=== PATIENT | female | born 1955 | race Caucasian/White ===

== ENCOUNTER 2022-11-04 14:30 | Outpatient (RCR) | payer MEDICARE, BC, SELFPAY | END 2022-11-04 15:24 | disposition home or self-care (01) | PROVIDERS: PCP Family Medicine; Visit Provider Family Medicine | DX: S22.060D Wedge compression fracture of T7-T8 vertebra, subsequent encounter for fracture with routine healing (principal); Z51.89 Encounter for other specified aftercare | CPT/HCPCS: 97110; 97140; 97162 ==

== ENCOUNTER 2023-10-14 14:22 | Emergency (ER) | payer MEDICARE, SELFPAY ==
[2023-10-14 14:26] VITALS: BP 119/83; PULSE 87; RESP 18; TEMP 35.7; O2SAT 98; BMI 32.3
--- NOTE | 2023-10-14 14:59 | CT_ITS ---
Patient: NATO COBB Facility:?[facility] Patient ID:?[id number] Site Patient ID:?[id number]. Site :?[id number] Study:?CT-Head WITHOUT-10/14/2023 3:26:46 PM Ordering Physician:CATHRYN Final Report: INDICATION: Dizziness COMPARISON: None TECHNIQUE: CT examination of the head was performed as axial sections without intravenous contrast. Images were obtained from the vertex of the skull through the skull base. Please note that all CT scans at this facility use dose modulation, iterative reconstruction, and/or weight-based dosing when appropriate to reduce radiation dose to as low as reasonably achievable. FINDINGS: The brain shows no sign of mass lesion, mass effect, hemorrhage, or edema. There are involutional changes. There is mild cortical atrophy and there is mild white matter disease. There is no hydrocephalus. The visualized portions of the orbits are normal in appearance. The osseous structures are normal in appearance with no sign of abnormality in the skull base or calvarium. IMPRESSION: Involutional changes. No acute-appearing findings. Please note that all CT scans at this facility use dose modulation, iterative reconstruction, and/or weight-based dosing when appropriate to reduce radiation dose to as low as reasonably achievable. Dictated by Maninder Winslow MD @ 10/14/2023 3:31:30 PM Signed by:?Maninder Winslow MD @10/14/2023 3:31:30 PM (Electronic Signature)
[2023-10-14 15:16] LABS: PCR FLU A Negative PCR FLU A (Negative); PCR FLU B Negative PCR FLU B (Negative); PCR RSV Negative PCR RSV (Negative); SARS PCR* Negative SARS-CoV-2 (Negative)
[2023-10-14] MEDS: MECLIZINE HCL 25 MG TABLET PO (15:38)
[2023-10-14] MEDS: LACTATED RINGERS 1000 ML 1,000 ML IV (15:38)
--- NOTE | 2023-10-14 15:51 | ED.GENADULT ---
HPI - General Adult General Date Seen: 10/14/23 Chief complaint: Headache/Migraine Stated complaint: Headache for over a week, dizzy Time Seen by Provider: 10/14/23 14:47 Source: patient Mode of arrival: ambulatory Limitations: no limitations History of Present Illness HPI narrative: Patient is a 68-year-old female with no pertinent medical problems presenting to the emergency department for dizziness and headache. She states for the past week she has been having issues with headache and dizziness. She states she does does not feel right. Says 1 week ago she has severe headache that improved but has been a continued headache since then. She has not been able to get rid of it. She also states she is feeling very dizzy and notices it gets worse whenever she moves her head. Does states she has similar symptoms about 4 weeks ago after getting back from right cruise. Describes dizziness as feeling like she still on the boat. Does states she has had vertigo in the past at that time and felt like the room was spinning. It was a long time ago and she does not remember how it was treated. Does states she has a cough but it is been a chronic cough that been going on for years. Denies fevers, chills, abdominal pain, chest pain, shortness of breath, diarrhea, constipation. Has occasional nausea but is not currently nauseated. She does states she feels dehydrated and has not been eating drinking or much for the past few days because of the dizziness. Related Data Home Medications Medication Instructions Recorded Confirmed alendronate 70 mg tablet 70 mg PO 03/07/23 06/10/23 bupropion HCl 300 mg 24 hr tablet, 300 mg PO DAILY 03/07/23 10/14/23 extended release cyclobenzaprine 5 mg tablet 5 mg PO 3XD PRN 03/07/23 06/10/23 levothyroxine 112 mcg tablet 112 mcg PO DAILY 03/07/23 10/14/23 liothyronine 5 mcg tablet 10 mcg PO QDAY 03/07/23 10/14/23 loratadine 10 mg tablet 10 mg PO DAILY 03/07/23 10/14/23 montelukast 10 mg tablet 10 mg PO DAILY 03/07/23 10/14/23 omeprazole 20 mg capsule,delayed 20 mg PO QDAY 03/07/23 06/10/23 release rosuvastatin 10 mg tablet 10 mg PO QPM 03/07/23 10/14/23 Previous Rx's Medication Instructions Recorded meclizine 25 mg tablet 25 mg PO QID #20 tabs 10/14/23 Allergies Allergy/AdvReac Type Severity Reaction Status Date / Time lisinopril AdvReac Verified 06/10/23 08:43 Sulfa (Sulfonamide AdvReac Verified 06/10/23 08:43 Antibiotics) Review of Systems Status of ROS: Reports: 10 or more systems reviewed and unremarkable except as noted in History and below [facility] Medical History Acute thoracic back pain ?M54.6 - Pain in thoracic spine (ICD-10) Compression fracture of T8 vertebra (~2021) ?S22.060A - Wedge compression fracture of T7-T8 vertebra, initial encounter for closed fracture (ICD-10) GERD (gastroesophageal reflux disease) ?K21.9 - Gastro-esophageal reflux disease without esophagitis (ICD-10) Hypothyroidism ?E03.9 - Hypothyroidism, unspecified (ICD-10) Surgical History Previous section (1987) ?Z98.891 - History of uterine scar from previous surgery (ICD-10) H/O knee surgery (1963) ?Z98.890 - Other specified postprocedural states (ICD-10) Family History Father COPD (chronic obstructive pulmonary disease) Mother Asthma High blood pressure Osteoporosis Social History Smoking Status: Current every day smoker What tobacco products do you use: cigarettes Do you use any of these nicotine containing products: None Second hand tobacco smoke exposure: No Exam Narrative: Exam Narrative: Const: Well-nourished, Well-developed, in mild distress Eyes: PERRL, no conjunctival injection, and symmetrical lids HENT: Atraumatic external nose and ears. Moist mucous membranes. Neck: Symmetric, trachea midline, No thyromegaly. CVS: RRR, No murmurs or gallops. Peripheral pulses 2+ and equal in all extremities RESP: Unlabored respiratory effort. Clear to auscultation bilaterally. GI: Nontender/Nondistended, No rebound or guarding. MSK:Extremities w/o deformity, Normal Active ROM Skin: Warm, Dry. No rashes or lesions. Neuro: Normal Muscle tone, No focal neurological deficits. Psych: Awake, Alert, & Oriented x3. Appropriate mood and affect. Const: Vital Signs, click to edit/add: Vital Signs - 24 hr 10/14/23 14:26 Temperature 96.3 F L Pulse Rate [Pulse Oximeter] 87 Respiratory Rate 18 Blood Pressure [Ri t Upper Arm] 119/83 Pulse Oximetry 98 Oxygen Delivery Me thod Room Air Course Vital Signs Vital signs: Initial Vital Signs Temperature 96.3 F L 10/14/23 14:26 Temperature Source Temporal Artery Scan 10/14/23 14:26 Pulse Rate 87 10/14/23 14:26 Respiratory Rate 18 10/14/23 14:26 Blood Pressure 119/83 10/14/23 14:26 Blood Pressure Mean 95 10/14/23 14:26 Blood Pressure Position Sitting 10/14/23 14:26 Pulse Oximetry 98 10/14/23 14:26 Oxygen Delivery Method Room Air 10/14/23 14:26 Vital Signs Temperature 96.3 F L 10/14/23 14:26 Pulse Rate 87 10/14/23 14:26 Respiratory Rate 18 10/14/23 14:26 Blood Pressure 119/83 10/14/23 14:26 Pulse Oximetry 98 10/14/23 14:26 Oxygen Delivery Method Room Air 10/14/23 14:26 Temperature 96.3 F L 10/14/23 14:26 Pulse Rate 87 10/14/23 14:26 Respiratory Rate 18 10/14/23 14:26 Blood Pressure 119/83 10/14/23 14:26 Pulse Oximetry 98 10/14/23 14:26 Oxygen Delivery Method Room Air 10/14/23 14:26 Medications Administered Medications: Discontinued Medications Generic Name Dose Route Start Last Admin Trade Name Freq PRN Reason Stop Dose Admin Lactated Ringer's 1,000 mls @ 1,000 mls/hr 10/14/23 14:59 10/14/23 16:47 Lactated Ringers 1000 Ml IV 10/14/23 15:58 Infused .Q1H ONE Infusion Meclizine HCl 25 mg 10/14/23 14:59 10/14/23 15:38 Meclizine Hcl 25 Mg Tablet PO 10/14/23 15:00 25 mg ONCE ONE Administration Potassium Chloride 40 meq 10/14/23 16:15 10/14/23 16:37 Potassium Chloride 10 Meq Capsule Er PO 10/14/23 16:16 40 meq ONCE ONE Administration Medical Decision Making MDM Narrative Medical decision making narrative: Patient is a 68-year-old female presenting mostly for dizziness at this time. Symptoms are worse when she moves her head and she is asymptomatic at rest. Do this I believe this is most likely peripheral vertigo rather than central dizziness. She does have this continued headache the also will still do a CT scan of her head. Will give her fluids for her dehydration and give her a dose of Antivert. Also order a COVID/flu/RSV, CBC, CMP, troponin, EKG. Patient's lab work returned showing no concerning abnormalities other than a potassium of 2.8. I did replenish his potassium. She is also given a L of lactated Ringer's. She was recently started on Lasix but is not taking it yet. I am not sure why she is hypokalemic but it is not low enough to require admission. Head CT reviewed by myself and the radiologist shows no acute concerning abnormalities. She was still having symptoms with head movement after meclizine I did attempt Epleys maneuver. This did not improve her symptoms. She does state though that she feels well enough to be discharged home. 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 She is agreeable to this plan. Lab Data Labs: Lab Results 10/14/23 10/14/23 10/14/23 Range/Units 14:34 15:00 15:36 WBC 10.36 (4.50-11.00) K/uL RBC 4.88 (4.00-5.20) m/uL Hgb 14.4 (12.0-16.0) gm/dL Hct 41.8 (33.0-51.0) % MCV 86 (80-100) fL MCH 30 (26-34) pg MCHC 34 (32-36) gm/dL RDW Coeff of Fazal 11.9 (11.5-15.5) % Plt Count 393 (140-440) K/uL Neut % (Auto) 55.5 (42.0-72.0) % Lymph % (Auto) 31.7 (20-44) % Norton % (Auto) 9.6 (0.0-11.0) % Eos % (Auto) 2.0 (0.0-7.0) % Baso % (Auto) 0.2 (0.0-3.0) % Neut # (Auto) 5.76 (1.7-7.0) K/uL Lymph # (Auto) 3.28 H (0.90-2.90) K/uL Norton # (Auto) 1.00 H (0.00-0.90) K/UL Eos # (Auto) 0.21 (0.00-0.50) K/uL Baso # (Auto) 0.02 (0.00-0.30) K/uL Abs Immat Gran (auto) 0.10 (0.00-0.30) K/uL Imm/Tot Granulo (auto) 1.0 % Sodium 132 L (135-149) mmol/L Potassium 2.8 L* (3.6-5.1) mmol/L Chloride 91 L (96-114) mmol/L Carbon Dioxide 30 (20-32) mmol/L Anion Gap 11 (7-15) mEq/L BUN 27 (7-30) mg/dL Creatinine 1.0 (0.5-1.5) mg/dL Estimated Creat Clear 49.00 Estimated GFR 61 ml/min Glucose 118 H (60-115) mg/dL Calcium 11.0 H (8.4-10.6) mg/dL Total Bilirubin 0.7 (0.1-1.5) mg/dL AST 42 H (12-35) U/L ALT 58 H (4-35) U/L Alkaline Phosphatase 94 (40-150) U/L Total Protein 8.0 (6.0-8.3) g/dL Albumin 4.5 (3.3-5.0) g/dL SARS-CoV-2 (PCR) Negative SARS-CoV-2 (Negative) Influenza Type A (PCR) Negative PCR FLU A (Negative) Influenza Type B (PCR) Negative PCR FLU B (Negative) RSV (PCR) Negative PCR RSV (Negative) POC Troponin I 0.00 L (0.01-0.04) ng/ml Imaging Data CT scan - head: Radiologist's impression: Involutional changes. No acute-appearing findings. Please note that all CT scans at this facility use dose modulation, iterative reconstruction, and/or weight-based dosing when appropriate to reduce radiation dose to as low as reasonably achievable. Dictated by Maninder Winslow MD @ 10/14/2023 3:31:30 PM ECG Data Attestation: I personally reviewed and interpreted this ECG as follows: Prior ECG tracings: not available for review Interpretation: Normal sinus rhythm left axis deviation, rate of 80 beats per minute, normal intervals, no ST or T-wave abnormalities Discharge Plan Discharge Clinical Impression: Vertigo, Hypokalemia Patient Disposition: Home, Self-Care Condition: Stable Instructions: Vertigo (DC), Hypokalemia (ED) Additional Instructions: If symptoms persist recommend following up with the primary care provider for the symptoms. Take the meclizine for your dizziness. Speak to your insert molding operator about your low potassium. Do not take the Lasix until you speak to them about this. . You should have this recheck to to make sure it has improved. In the meantime eat high potassium containing foods. Prescriptions: New meclizine 25 mg tablet 25 mg PO QID Qty: 20 0RF No Action bupropion HCl 300 mg tablet extended release 24 hr 300 mg PO DAILY cyclobenzaprine 5 mg tablet 5 mg PO 3XD PRN montelukast 10 mg tablet 10 mg PO DAILY alendronate 70 mg tablet 70 mg PO levothyroxine 112 mcg tablet 112 mcg PO DAILY rosuvastatin 10 mg tablet 10 mg PO QPM liothyronine 5 mcg tablet 10 mcg PO QDAY loratadine 10 mg tablet 10 mg PO DAILY omeprazole 20 mg capsule,delayed release(DR/EC) 20 mg PO QDAY Follow Up/Referrals: Mi Calix MD [Primary Care Provider] - Stand Alone Forms: Banno Info Instructions
[2023-10-14 15:54] LABS: Basophils Absolute Auto 0.02 K/uL (0.00-0.30); Basophils Percent Auto 0.2 % (0.0-3.0); Eosinophils Absolute Auto 0.21 K/uL (0.00-0.50); Hematocrit 41.8 % (33.0-51.0); Hemoglobin* 14.4 gm/dL (12.0-16.0); Lymphocytes Absolute Auto 3.28 K/uL (0.90-2.90); Lymphocytes Percent Auto 31.7 % (20-44); Mean Corpuscular HGB Conc 34 gm/dL (32-36); Mean Corpuscular Hemoglobin 30 pg (26-34); Mean Corpuscular Volume 86 fL (80-100); Monocytes Percent Auto 9.6 % (0.0-11.0); Neutrophils Absolute Auto 5.76 K/uL (1.7-7.0); Neutrophils Percent Auto 55.5 % (42.0-72.0); Platelet Count* 393 K/uL (140-440); RDW Coefficient of Variation % 11.9 % (11.5-15.5); Red Blood Count 4.88 m/uL (4.00-5.20); White Blood Count* 10.36 K/uL (4.50-11.00)
[2023-10-14 15:55] LABS: Slide Review Reflex No
[2023-10-14 16:06] LABS: Albumin* 4.5 g/dL (3.3-5.0); Chloride* 91 mmol/L (96-114)
[2023-10-14 16:07] LABS: Sodium* 132 mmol/L (135-149)
[2023-10-14 16:09] LABS: Alkaline Phosphatase* 94 U/L (40-150); Anion Gap 11 mEq/L (7-15); Aspartate Amino Transferase* 42 U/L (12-35); Bilirubin Total* 0.7 mg/dL (0.1-1.5); Blood Urea Nitrogen* 27 mg/dL (7-30); Carbon Dioxide* 30 mmol/L (20-32); Estimated Glomerular Filt Rate 61 ml/min
[2023-10-14 16:10] LABS: Alanine Aminotransferase* 58 U/L (4-35); Glucose* 118 mg/dL (60-115)
[2023-10-14 16:11] LABS: Potassium* 2.8 mmol/L (3.6-5.1)
[2023-10-14] MEDS: POTASSIUM CHLORIDE 10 MEQ CAPSULE ER 40 MEQ PO (16:37)
== END 2023-10-14 18:11 | disposition home or self-care (01) ==
PROVIDERS: Emergency Provider Student in an Organized Health Care Education/Training Program; PCP Family Medicine
DX: R42 Dizziness and giddiness (principal); E87.6 Hypokalemia
CPT/HCPCS: 36415; 70450; 80053; 84484; 85025; 87631; 93005; 99283; 99284; A9270; J7120